=== PATIENT | male | born 1975 | race Caucasian/White ===

== ENCOUNTER 2021-08-29 15:12 | Emergency (ER) | payer OTHER, BC ==
[2021-08-29] MEDS ORDERED: Lidocaine 1% 5 ML VIAL INJECT ONE (16:31)
[2021-08-29] MEDS ORDERED: Bacitracin/Neomycin/Polymyxin B Oint 0.9 GM U/D Packet TOP ONE (16:31)
[2021-08-29] MEDS ORDERED: Diphtheria,Pertussis(Acell),Tetanus Vaccine 0.5 ML Syringe IM ONE (16:57)
== END 2021-08-29 17:43 | disposition home or self-care (01) ==
LOC: LL.ED 15:12
DX: S61.411A Laceration without foreign body of right hand, initial encounter (principal); Z91.011 Allergy to milk products; Z88.0 Allergy status to penicillin; Z23 Encounter for immunization; W26.8XXA Contact with other sharp object(s), not elsewhere classified, initial encounter; Y99.0 Civilian activity done for income or pay
CPT/HCPCS: 12001; 90471; 90715; 99282-25